=== PATIENT | male | born 1955 | race Caucasian/White ===

== ENCOUNTER 2024-01-02 15:28 | Inpatient (IN) | payer OTHER, MEDICARE ==
[~2024-01-02] VITALS: Ht 170.2 cm; Wt 80.3 kg
[~2024-01-02 15:28] MED LIST: LACO50TA2 PO; LIPITOR80 MG PO; METF500 PO; TAMS.4ER PO; TRAZ50 PO
[2024-01-02] MEDS ORDERED: Ondansetron HCl 2 MG / ML 2ML Vial IV PRN ×2 (15:55→23:05)
[2024-01-02 16:17] LABS: BASOPHILS ABSOLUTE AUTO 0.04 K/mm3 (0.00-0.23); BASOPHILS PERCENT AUTO 0 % (0-2); EOSINOPHILS PERCENT AUTO 0 % (0-6); Hematocrit 49.2 % (37.0-53.0); Hemoglobin 16.7 g/dL (13.5-17.5); IMMATURE GRAN ABSOLUTE AUTO 0.18 K/mm3 (0.00-0.10); IMMATURE GRAN PERCENT AUTO 1 % (0-1); LYMPHOCYTES ABSOLUTE AUTO 1.53 K/mm3 (0.84-5.20); LYMPHOCYTES PERCENT AUTO 6 % (21-46); MONOCYTES ABSOLUTE AUTO 0.69 K/mm3 (0.16-1.47); MONOCYTES PERCENT AUTO 3 % (4-13); Mean Corpuscular HGB 31.7 pg (26.0-34.0); Mean Corpuscular HGB Conc 33.9 g/dL (31.5-36.5); Mean Corpuscular Volume 93 fL (80-100); NEUTROPHILS ABSOLUTE AUTO 22.79 K/mm3 (1.96-9.15); NEUTROPHILS PERCENT AUTO 90 % (41-73); Platelet Count 290 K/mm3 (150-400); RDW Coefficient Variation 12.5 % (11.7-14.2); RDW Standard Deviation 43.1 fL (35.1-46.3); Red Blood Cell Count 5.27 M/mm3 (4.30-5.90); White Blood Cell Count 25.23 K/mm3 (4.00-11.30)
[2024-01-02 16:36] LABS: Albumin, Blood 4.1 g/dL (3.4-5.0); Albumin/Globulin Ratio 0.9 (0.8-1.8); Bilirubin, Total 0.6 mg/dL (0.1-1.0); Bun/Creatinine Ratio 28.8 (12.0-20.0); Calcium, Blood 9.9 mg/dL (8.5-10.1); Creatinine, Blood 0.76 mg/dL (0.60-1.20); Globulin, Blood 4.7 g/dL (2.2-4.0); Potassium, Blood 4.1 mmol/L (3.5-5.5); Total Protein, Blood 8.8 g/dL (6.4-8.2)
[2024-01-02] MEDS ORDERED: NS 1,000 ML IV SCH ×2 (19:30→22:10)
[2024-01-02] MEDS ORDERED: Morphine Sulfate 4 MG/1 ML Injection IV ONE ×2 (19:30→21:40)
[2024-01-02] MEDS ORDERED: MethylPREDNISolone Sod Succ 125 MG Vial IV ONE (22:10)
[2024-01-02] MEDS ORDERED: Piperacillin/Tazobactam Sod 4.5 GM in NS 100 ML IV ONE (22:20)
[2024-01-02] MEDS ORDERED: FentaNYL Citrate 50 MCG/ML 2 ML Injection IV PRN (23:00)
[2024-01-02] MEDS ORDERED: Acetaminophen 650 MG Supp PR PRN (23:00)
[2024-01-02] MEDS ORDERED: Naloxone HCl 0.4MG / ML 1ML Vial IV PRN (23:05)
[2024-01-02] MEDS ORDERED: OxyCODONE HCL 5 MG TAB PO PRN (23:05)
[2024-01-02] MEDS ORDERED: Acetaminophen 325 MG TABLET PO PRN (23:05)
[2024-01-02] MEDS ORDERED: FLU VACC TS2024-25(6MOS UP)/PF 45 MCG/0.5 ML SYRINGE IM ONE (23:05)
[2024-01-02] MEDS ORDERED: Lactated Ringer's 1,000 ML IV SCH (23:33)
[2024-01-03 00:13] LABS: C-Reactive Protein, High Sens. 0.663 mg/dL (0.000-3.000)
[2024-01-03] MEDS ORDERED: TraZODone HCl 50 MG Tab PO PRN (00:40)
[2024-01-03 05:36] LABS: BASOPHILS ABSOLUTE AUTO 0.04 K/mm3 (0.00-0.23); BASOPHILS PERCENT AUTO 0 % (0-2); EOSINOPHILS PERCENT AUTO 0 % (0-6); Hematocrit 44.1 % (37.0-53.0); Hemoglobin 15.1 g/dL (13.5-17.5); IMMATURE GRAN ABSOLUTE AUTO 0.14 K/mm3 (0.00-0.10); IMMATURE GRAN PERCENT AUTO 1 % (0-1); LYMPHOCYTES ABSOLUTE AUTO 1.21 K/mm3 (0.84-5.20); LYMPHOCYTES PERCENT AUTO 5 % (21-46); MONOCYTES ABSOLUTE AUTO 0.28 K/mm3 (0.16-1.47); MONOCYTES PERCENT AUTO 1 % (4-13); Mean Corpuscular HGB 31.9 pg (26.0-34.0); Mean Corpuscular HGB Conc 34.2 g/dL (31.5-36.5); Mean Corpuscular Volume 93 fL (80-100); Mean Platelet Volume 9.2 fL (9.1-12.4); NEUTROPHILS ABSOLUTE AUTO 23.05 K/mm3 (1.96-9.15); NEUTROPHILS PERCENT AUTO 93 % (41-73); Platelet Count 258 K/mm3 (150-400); RDW Coefficient Variation 12.7 % (11.7-14.2); RDW Standard Deviation 43.8 fL (35.1-46.3); Red Blood Cell Count 4.73 M/mm3 (4.30-5.90); White Blood Cell Count 24.72 K/mm3 (4.00-11.30)
[2024-01-03 05:49] LABS: Magnesium, Blood 1.7 mg/dL (1.6-2.4)
[2024-01-03 06:03] LABS: Albumin, Blood 3.3 g/dL (3.4-5.0); Albumin/Globulin Ratio 0.8 (0.8-1.8); Bilirubin, Total 0.4 mg/dL (0.1-1.0); Bun/Creatinine Ratio 21.5 (12.0-20.0); Calcium, Blood 8.2 mg/dL (8.5-10.1); Creatinine, Blood 0.89 mg/dL (0.60-1.20); Globulin, Blood 4.1 g/dL (2.2-4.0); Potassium, Blood 4.1 mmol/L (3.5-5.5); Total Protein, Blood 7.4 g/dL (6.4-8.2)
[2024-01-03] MEDS ORDERED: Lactobacil 2-S.Thermo-Bifido 1 1 Cap PO SCH (09:00)
[2024-01-03] MEDS ORDERED: Lacosamide 50 MG Tablet PO SCH ×2 (09:00)
[2024-01-03] MEDS ORDERED: MethylPREDNISolone Sod Succ 125 MG Vial IV SCH (09:00)
[2024-01-03] MEDS ORDERED: Tamsulosin HCl 0.4 MG Cap PO SCH (09:00)
[2024-01-03] MEDS ORDERED: Enoxaparin 40 MG/0.4 ML SYR SC SCH (09:00)
[2024-01-03 11:06] VITALS: BP 144/90
--- NOTE | 2024-01-03 14:53 | NUR ---
CALL FROM TOBY ALKALINE WATER, REPORTING PATIENT'S HR TACHYING UP TO 130s/140s AND SUSTAINING. NOTIFIED PRIMARY RN.
[2024-01-03 15:38] VITALS: BP 91/63
[2024-01-03 15:40] VITALS: BP 111/76
[2024-01-03] MEDS ORDERED: ELEPSIA XR1500 MG PO (15:59)
[2024-01-03] MEDS ORDERED: FAMO20 PO (16:01)
[2024-01-03 17:21] VITALS: BP 98/61
[2024-01-03] MEDS ORDERED: Lactated Ringer's 1,000 ML IV SCH (17:25)
[2024-01-03 17:41] VITALS: BP 98/61
--- NOTE | 2024-01-03 19:12 | NUR ---
SHIFT SUMMARY/ADMIT: PT A/O X4. PLEASANT AND COOPERATIVE WITH CARE. ER ADMIT THIS AM. PT C/O 5-6 ABD PAIN UPON INITIAL ASSESSMENT. PRN PAIN MEDICATION PROVIDED. PT STATED FOR FUTURE PAIN REGEMIN HE WOULD LIKE "MORPHINE LIKE I GOT IN THE ER." TELE IN PLACE RUNNING SINUS TACHY IN 120'S-130'S. HOSPITALIST AWARE OF HEARTRATE. LR INFUSING @ 125/HR. PT ACCIDENTALLY PULLED RAC IV. EDEMA NOTED IN RFA POST IV PULL. NEW IV PLACED IN RWR. PT HAD FALL AT APPROX 1710 THIS SHIFT. PT STATED NEPHEW WAS ATTEMPTING TO WALK PT TO BATHROOM. BED ALARM IN PLACE PRIOR TO ATTEMPT BUT STAFF UNABLE TO BE IN ROOM UNTIL POST FALL. PT C/O R. SIDE NECK PAIN POST FALL BUT CLAIMS HE DID NOT HIT HEAD. TYLENOL PROVIDED POST FALL. DR. SMITH AWARE. DURING INITAL ASSESSMENT, PT STATED HE WANTED TO BE DNR STATUS INSTEAD OF FULL CODE. DR. SMITH NOTIFIED SHORTLY AFTER STATING SHE WOULD PLACE ORDER. PT SISTER ABLE TO SEND IN LIST OF MEDICATIONS. CALL LIGHT IN REACH. BED IN LOWEST POSITION WITH ALARM ON.
[2024-01-03 20:00] VITALS: BP 96/55
[2024-01-03] MEDS ORDERED: Atorvastatin 40 MG Tab PO SCH (21:00)
[2024-01-04] VITALS (36 sets, daily range): BP systolic 80–150; BP diastolic 47–110
[2024-01-04 05:49] LABS: BASOPHILS ABSOLUTE AUTO 0.05 K/mm3 (0.00-0.23); BASOPHILS PERCENT AUTO 0 % (0-2); EOSINOPHILS PERCENT AUTO 0 % (0-6); Hematocrit 24.5 % (37.0-53.0); Hemoglobin 7.9 g/dL (13.5-17.5); IMMATURE GRAN PERCENT AUTO 1 % (0-1); LYMPHOCYTES ABSOLUTE AUTO 4.82 K/mm3 (0.84-5.20); LYMPHOCYTES PERCENT AUTO 13 % (21-46); MONOCYTES ABSOLUTE AUTO 3.22 K/mm3 (0.16-1.47); MONOCYTES PERCENT AUTO 9 % (4-13); Mean Corpuscular HGB 32.2 pg (26.0-34.0); Mean Corpuscular HGB Conc 32.2 g/dL (31.5-36.5); Mean Platelet Volume 10.2 fL (9.1-12.4); NEUTROPHILS ABSOLUTE AUTO 28.97 K/mm3 (1.96-9.15); NEUTROPHILS PERCENT AUTO 77 % (41-73); Platelet Count 235 K/mm3 (150-400); RDW Coefficient Variation 13.2 % (11.7-14.2); RDW Standard Deviation 47.9 fL (35.1-46.3); Red Blood Cell Count 2.45 M/mm3 (4.30-5.90); White Blood Cell Count 37.46 K/mm3 (4.00-11.30)
[2024-01-04 05:54] LABS: Mean Corpuscular Volume 100 fL (80-100)
[2024-01-04 06:30] LABS: Albumin, Blood 2.4 g/dL (3.4-5.0); Albumin/Globulin Ratio 0.8 (0.8-1.8); Bilirubin, Total 0.2 mg/dL (0.1-1.0); Calcium, Blood 8.2 mg/dL (8.5-10.1); Creatinine, Blood 1.16 mg/dL (0.60-1.20); Globulin, Blood 2.9 g/dL (2.2-4.0); Potassium, Blood 4.3 mmol/L (3.5-5.5); Total Protein, Blood 5.3 g/dL (6.4-8.2)
[2024-01-04] MEDS ORDERED: Morphine Sulfate 4 MG/1 ML Injection IV PRN (07:40)
[2024-01-04] MEDS ORDERED: Promethazine HCl 25 MG Tab PO PRN (07:45)
[2024-01-04 07:58] LABS: Hematocrit 23.2 % (37.0-53.0); Hemoglobin 7.6 g/dL (13.5-17.5); Mean Corpuscular HGB 32.5 pg (26.0-34.0); Mean Corpuscular HGB Conc 32.8 g/dL (31.5-36.5); Mean Corpuscular Volume 99 fL (80-100); Platelet Count 230 K/mm3 (150-400); RDW Coefficient Variation 13.4 % (11.7-14.2); RDW Standard Deviation 47.6 fL (35.1-46.3); Red Blood Cell Count 2.34 M/mm3 (4.30-5.90); White Blood Cell Count 38.15 K/mm3 (4.00-11.30)
[2024-01-04] MEDS ORDERED: MetroNIDAZOLE 500MG/NS 100 ml 100 ML IV SCH (08:00)
[2024-01-04] MEDS ORDERED: Pantoprazole Sodium 40 MG Injection IV SCH (08:00)
[2024-01-04 08:18] LABS: BASOPHILS PERCENT MAN 0 % (0-2); EOSINOPHILS PERCENT MAN 0 % (0-6); LYMPHOCYTES ABSOLUTE MAN 6.86 K/mm3 (0.84-5.20); LYMPHOCYTES PERCENT MAN 18 % (21-46); MONOCYTES PERCENT MAN 5 % (4-13); NEUTROPHILS ABSOLUTE MAN 29.37 K/mm3 (1.96-9.15); SEG NEUTROPHILS PERCENT MAN 77 % (41-73); TOTAL CELLS COUNTED 100
[2024-01-04] MEDS ORDERED: CIPROFLOXACIN IV SCH (09:00)
[2024-01-04] MEDS ORDERED: [UNRECOGNIZED DRUG - OTHER] IV SCH (09:00)
[2024-01-04] MEDS ORDERED: Pantoprazole Sodium 40 MG in NS 50 ML IV SCH (09:30)
[2024-01-04] MEDS ORDERED: LORazepam 2 MG/ML 1ML Injection IV PRN (09:30)
[2024-01-04] MEDS ORDERED: levETIRAcetam 1,000 MG in NS 100 ML IV SCH (09:35)
[2024-01-04] MEDS ORDERED: NS 500 ML IV SCH (12:00)
--- NOTE | 2024-01-04 12:33 | NUR ---
Pt A-Ox2 disoriented to time and place, lethergic, VSS with sinus tachycardia of 120-130s, bedbound, shows no signs of pain or SOB, on 3L NC, Had crital Lab of Lactic of 2.3 At 0905 pt was unresponsive, confused with fix gazed, purse lip breathing, drool and spit all over mouth, Rapid called do to change in mentaly/possible MD yulia notifed, VSS stabel. pt transfered to ICU, report given, safety ensured.
[2024-01-04] MEDS ORDERED: EpiNEPhrine 1 MG/1 ML 1ML Vial ONE (13:58)
[2024-01-04] MEDS ORDERED: Ethanolamine Oleate 50MG/ML 2ML Amp ONE (13:58)
[2024-01-04] MEDS ORDERED: Lactated Ringer's 1,000 ML IV SCH (14:00)
--- NOTE | 2024-01-04 14:35 | NUR ---
ASSUMED CARE OF PT AT 1120 REPORT RECEIVED FROM GOOD PATEL. PT IS CURRENTLY ON THE MEDICAL FLOOR ON TELE AND WAS A RAPID RESPONSE THIS AM DUE TO CHANGE IN LEVEL OF CONSCIOUSNESS AND SEIZURE ACTIVITY. PT HAS HAD ATIVAN IV AND IS CURRENLTY DROWSY. ARRIVED VIA HOSPITAL BED ON 3L NC, ACCOMPANIED BY RN AND PCT. MOVED OVER TO ICU BED, SKIN CHECK COMPLETED WITH GOOD JACOBS. PT ANSWERS QUESTIONS APPROPRIATELY BUT FALLS IMMEDIATELY BACK TO SLEEP. ST 120'S-130'S. O2 SAT 100% ON 3L NC, PT DOES NOT WEAR O2 AT HOME. LUNGS CTA, NO COUGH OR SHORTNESS OF BREATH. DENIES ANY GI ISSUES AT THIS TIME BUT HAS BEEN C/O INTERMITTENT NAUSEA PER REPORT. NO VOMITING REPORTED. CONTINENT OF URINE AT BASELINE BUT HAS BEEN INCONTINENT OF URINE THIS AM AND IS CURRENTLY IN A BRIEF. NO BREAKDOWN RELATED TO PRESSURE OBSERVED, BRUISE TO SPINE AND LEFT UPPER ARM NOTED. BOTH DOCUMENTED. PG TO RIGHT UPPER ARM, LR INFUSING WITH FLAGYL IVPB UPON ARRIVAL. PICC PLACED BY GOOD JACOBS TO LEFT UPPER ARM, PT TOLERATED WELL ALTHOUGH NEEDED CONSTANT REDIRECTION TO STAY ON HIS BACK. PICC LINE IS AT 51, 2 CM VISIBLE OUTSIDE OF SKIN. TOTAL OF 2 UNITS OF PRBC'S ORDERED AND INFUSED. NEICE TO BEDSIDE, PT'S SISTERS ARE DECISION MAKERS. PT LIVES WITH SISTER DOROTHY. DR. DIAZ CONSULT PLACED AND SURGEON TO BEDSIDE. PLAN IS TO COMPLETE EGD TODAY TO DETERMINE IF A SOURCE OF BLEED CAN BE LOCATED. PHONE NUMBER FOR SISTER GIVEN TO SURGERY TEAM FOR CONSENT FOR PROCEDURE. POC ONGOING.
[2024-01-04] MEDS ORDERED: propofoL 40 ML IV ONE (14:47)
--- NOTE | 2024-01-04 15:31 | NUR ---
01/04/24 1531 Geri Roger 1525 MONITOR INTACT WITH CONTINUOUS PULSE OXIMETRY, CONTINUOUS END TITAL CO2, AND INTERMITTENT BLOOD PRESSURE.History, Chart, Medications and Allergies reviewed before start of procedure.Patient confirms NPO status and agrees with scheduled surgery.Bite Block Placed.ECG IN ICU 15. CHERELLE VELA CRNA PROVIDING ANESTHESIA. SEE ANESTHESIA RECORD.
--- NOTE | 2024-01-04 17:18 | NUR ---
SHIFT SUMMARY PT HAS REMAINED SOMNOLENT AFTER EGD. ORIENTED X PERSON AND PLACE, DOES NOT REMEMBER EVENTS OF TODAY SINCE SEIZURE. V/S STABLE, PT WANTING TO GO OUTSIDE TO SMOKE. NO CIGARETTES OR SHEET METAL LAYOUT WORKER AT BEDSIDE, PT REDIRECTED AND EDUCATED ABOUT BEING ON OXYGEN AND INABILITY TO GET OUT OF BED AT THIS TIME. HE VERBALIZES UNDERSTANDING. NIECE AT BEDSIDE. BED ALARM ON PT HAS A HISTORY OF BEING IMPULSIVE. REMAINS ON 3L NC DURING RECOVERY AFTER SEDATION TO MAINTAIN O2 SAT > 94%. NPO UNTIL TOMORROW PER SURGEON. INCONTINENT OF URINE X2, CLEANED AND NEW BRIEF PLACED. SKIN UNCHANGED FROM EARLER ASSESSMENT. NS TKO INFUSING WITH FLAGYL IVPB. 2 UNITS OF PRBC'S COMPLETED. POC ONGOING.
[2024-01-04 18:24] LABS: Hematocrit 27.7 % (37.0-53.0); Hemoglobin 9.5 g/dL (13.5-17.5)
[2024-01-04] MEDS ORDERED: Nicotine 14 MG PATCH TOP SCH (18:30)
--- NOTE | 2024-01-04 21:27 | NUR ---
ASSUMPTION OF CARE PT LYING IN BED WITH SEIAURE PADS ON AND BED ALARM ON. PT IS SLEEPY BUT AWAKES TO VOICE AND IS ORIENTED TO ALL. AFEBRILE 98.1 F. HR SINUS TACHY IN LOW 100S AND BP STABLE. SAT 95% ON RA. NO CHEST PAIN OR SOB. PT DENIES N/V/ABDOMINAL PAIN. PROTONIX INFUSING INTO LEFT PICC LINE AT 10ML/HR. PT REPORTEDLY INTERMITTENTLY INCONTINENT OF URINE, POSSIBLY DUE TO PROCEDURAL SEDATION EARLIER TODAY. PT HAS CALL LIGHT StudyRoomIN REACH.
[2024-01-05] VITALS (20 sets, daily range): BP systolic 93–149; BP diastolic 54–87
[2024-01-05 00:31] LABS: Hematocrit 24.1 % (37.0-53.0); Hemoglobin 8.3 g/dL (13.5-17.5)
[2024-01-05 05:16] LABS: BASOPHILS ABSOLUTE AUTO 0.02 K/mm3 (0.00-0.23); BASOPHILS PERCENT AUTO 0 % (0-2); EOSINOPHILS PERCENT AUTO 0 % (0-6); Hematocrit 22.5 % (37.0-53.0); Hemoglobin 7.6 g/dL (13.5-17.5); IMMATURE GRAN ABSOLUTE AUTO 0.16 K/mm3 (0.00-0.10); IMMATURE GRAN PERCENT AUTO 1 % (0-1); LYMPHOCYTES ABSOLUTE AUTO 5.63 K/mm3 (0.84-5.20); LYMPHOCYTES PERCENT AUTO 25 % (21-46); MONOCYTES ABSOLUTE AUTO 2.19 K/mm3 (0.16-1.47); MONOCYTES PERCENT AUTO 10 % (4-13); Mean Corpuscular HGB 31.5 pg (26.0-34.0); Mean Corpuscular HGB Conc 33.8 g/dL (31.5-36.5); Mean Corpuscular Volume 93 fL (80-100); Mean Platelet Volume 9.2 fL (9.1-12.4); NEUTROPHILS ABSOLUTE AUTO 14.28 K/mm3 (1.96-9.15); NEUTROPHILS PERCENT AUTO 64 % (41-73); Platelet Count 132 K/mm3 (150-400); RDW Coefficient Variation 14.6 % (11.7-14.2); RDW Standard Deviation 50.3 fL (35.1-46.3); Red Blood Cell Count 2.41 M/mm3 (4.30-5.90); White Blood Cell Count 22.28 K/mm3 (4.00-11.30)
--- NOTE | 2024-01-05 06:12 | NUR ---
SHIFT SUMMARY PT LYING IN BED WITH SEIZURE PADS ON AND BED ALARM ON. PT IS SLEEPY BUT AWAKES TO VOICE AND IS ORIENTED TO ALL. AFEBRILE 98. F. HR SINUS TO SINUS TACHY IN 90S TO LOW 100S AND BP STABLE TO SOFT WHILE SLEEPING 93/58 (68). SAT 92% ON RA. NO CHEST PAIN OR SOB. PT DENIES N/V/ABDOMINAL PAIN. PROTONIX INFUSING INTO LEFT PICC LINE AT 10ML/HR. PT HAS USED CALL LIGHT APPROPIATELY IN ORDER TO MAINTAIN URINARY CONTINENCE. PT HAS CALL LIGHT WTIHIN REACH.
[2024-01-05 06:51] LABS: Albumin, Blood 2.2 g/dL (3.4-5.0); Albumin/Globulin Ratio 0.9 (0.8-1.8); Bilirubin, Total 0.6 mg/dL (0.1-1.0); Bun/Creatinine Ratio 40.9 (12.0-20.0); Calcium, Blood 7.8 mg/dL (8.5-10.1); Creatinine, Blood 1.1 mg/dL (0.60-1.20); Globulin, Blood 2.4 g/dL (2.2-4.0); Potassium, Blood 3.8 mmol/L (3.5-5.5); Total Protein, Blood 4.6 g/dL (6.4-8.2)
[2024-01-05 09:15] LABS: Hemoglobin 7.9 g/dL (13.5-17.5)
[2024-01-05] MEDS ORDERED: Lidocaine 2% Viscous Soln 20 ML,Nystatin 100,000 Unit/ml Susp 20 ML,Mag Hydrox/Al Hydro... MT PRN (14:20)
[2024-01-05] MEDS ORDERED: Sucralfate 1000MG / 10ML UD BTL PO SCH (16:30)
--- NOTE | 2024-01-05 18:03 | NUR ---
DAY SHIFT SUMMARY PT HAS REMAINED ALERT AND ORIENTED THIS SHIFT COMMUNICATING APPROPRIATELY W STAFF. PT VERY DROWSY THIS AM BUT BECAME MORE AWAKE T/O THE DAY. PT HAD NO SEIZURE LIKE ACTIVITY TODAY. PT STARTED ON CLEAR LIQUIDS TODAY AFTER IT WAS CLEARED W DR. DIAZ. PT W C/O OF PAIN IN HIS THROAT W SWALLOWING FLUIDS SO PROVIDER CONTACTED AND PT ORDERED MAGIC MOUTHWASH. PT'S MONITOR SHOWING SR 90'S-100'S THIS SHIFT. BP WNL AND STABLE. PT AFEBRIEL THIS SHIFT. SPO2 >92% ON RM AIR. PT WORKING W PT TODAY. PT TURNING SELF T/O THE SHIFT IN BED. WILL REPORT TO ONCOMING RN.
[2024-01-05 20:48] LABS: Hematocrit 21.3 % (37.0-53.0); Hemoglobin 7.3 g/dL (13.5-17.5)
--- NOTE | 2024-01-05 20:57 | NUR ---
Assumed care of pt at 1900 Pt resting in room on bed, watching TV w/ call light w/ in reach. PT alert and oriented. Speech is slow and pt is hard of hearing. Pt tolerating clear liquid diet. Takes PO medications w/ out incident. Pt has TKO line infusing, and protonix as ordered. Pt on room air, maintaining O2 sats >94%. Lungs clear, dim in bases. PT on continuous interactive media director, hr 100-110s. BP stable w/ systolic in 130s. PT using call light for assistance w/ urinal- using in bed. Pt denies further needs at this time. Plan of care ongoing.
[2024-01-05] MEDS ORDERED: Insulin Human Lispro 100 Units/ML 3ML Syringe SC SCH (21:00)
--- NOTE | 2024-01-05 22:29 | NUR ---
TRANSFER SUMMARY REPORT CALLED TO KALYANI FUNK. PT TRANSFERRED TO PCU ROOM 4. PT ALERT/ORIENTED. PT HAS PROTONIX DRIP RUNNING PER EMAR W/ TKO LINES X2. PT BELONINGS TRANSFERRED W/ PT.
[2024-01-06] VITALS (10 sets, daily range): BP systolic 116–144; BP diastolic 59–80
[2024-01-06 04:14] LABS: BASOPHILS ABSOLUTE AUTO 0.01 K/mm3 (0.00-0.23); BASOPHILS PERCENT AUTO 0 % (0-2); EOSINOPHILS ABSOLUTE AUTO 0.02 K/mm3 (0.00-0.68); EOSINOPHILS PERCENT AUTO 0 % (0-6); Hematocrit 20.3 % (37.0-53.0); Hemoglobin 6.9 g/dL (13.5-17.5); IMMATURE GRAN ABSOLUTE AUTO 0.11 K/mm3 (0.00-0.10); IMMATURE GRAN PERCENT AUTO 1 % (0-1); LYMPHOCYTES ABSOLUTE AUTO 4.78 K/mm3 (0.84-5.20); LYMPHOCYTES PERCENT AUTO 32 % (21-46); MONOCYTES ABSOLUTE AUTO 1.51 K/mm3 (0.16-1.47); MONOCYTES PERCENT AUTO 10 % (4-13); Mean Corpuscular HGB 32.4 pg (26.0-34.0); Mean Corpuscular Volume 95 fL (80-100); Mean Platelet Volume 9.3 fL (9.1-12.4); NEUTROPHILS ABSOLUTE AUTO 8.64 K/mm3 (1.96-9.15); NEUTROPHILS PERCENT AUTO 57 % (41-73); NRBC ABSOLUTE 0.06 K/mm3 (0.00-0.02); NRBC Auto 0.4 /100 WBC (0.0-0.2); Platelet Count 126 K/mm3 (150-400); RDW Coefficient Variation 14.2 % (11.7-14.2); RDW Standard Deviation 48.6 fL (35.1-46.3); Red Blood Cell Count 2.13 M/mm3 (4.30-5.90); White Blood Cell Count 15.07 K/mm3 (4.00-11.30)
[2024-01-06 04:39] LABS: Albumin, Blood 2.1 g/dL (3.4-5.0); Albumin/Globulin Ratio 0.8 (0.8-1.8); Bilirubin, Total 0.5 mg/dL (0.1-1.0); Bun/Creatinine Ratio 21.6 (12.0-20.0); Calcium, Blood 7.1 mg/dL (8.5-10.1); Creatinine, Blood 0.88 mg/dL (0.60-1.20); Globulin, Blood 2.5 g/dL (2.2-4.0); Potassium, Blood 3.3 mmol/L (3.5-5.5); Total Protein, Blood 4.6 g/dL (6.4-8.2)
--- NOTE | 2024-01-06 06:11 | NUR ---
SHIFT SUMMARY ASSUMED CARE OF PT AFTER ICU TRANSFER AT APPROX 2230. PT A&O4, SLOW TO ANSWER BUT CAN EXPRESS SELF CLEARLY. VSS. PT PRESENTED WITH A PROTONIX GTTS AT 10ML/HR RUNNING ON POWERGLIDE AND NS FOR KVO RUNNING ON TRIPLE LUMEN PICC. NO SKIN BREAKDOWN PRESENT AND PT ABLE TO REPOSITION SELF IN BED. PT HGB THIS AM IS 6.9, NOTIFICATION TO MD PLACED AND ORDERS FOR 1U PRBC PLACED. PT TOLERATING TRANSFUSION. BED IN LOWEST POSITION AND CALL LIGHT WITHIN REACH.
[2024-01-06 11:25] LABS: BASOPHILS ABSOLUTE AUTO 0.01 K/mm3 (0.00-0.23); BASOPHILS PERCENT AUTO 0 % (0-2); EOSINOPHILS ABSOLUTE AUTO 0.01 K/mm3 (0.00-0.68); EOSINOPHILS PERCENT AUTO 0 % (0-6); Hematocrit 25.6 % (37.0-53.0); Hemoglobin 8.6 g/dL (13.5-17.5); IMMATURE GRAN ABSOLUTE AUTO 0.11 K/mm3 (0.00-0.10); IMMATURE GRAN PERCENT AUTO 1 % (0-1); LYMPHOCYTES ABSOLUTE AUTO 3.57 K/mm3 (0.84-5.20); LYMPHOCYTES PERCENT AUTO 25 % (21-46); MONOCYTES ABSOLUTE AUTO 1.39 K/mm3 (0.16-1.47); MONOCYTES PERCENT AUTO 10 % (4-13); Mean Corpuscular HGB 31.9 pg (26.0-34.0); Mean Corpuscular HGB Conc 33.6 g/dL (31.5-36.5); Mean Corpuscular Volume 95 fL (80-100); Mean Platelet Volume 9.9 fL (9.1-12.4); NEUTROPHILS ABSOLUTE AUTO 9.02 K/mm3 (1.96-9.15); NEUTROPHILS PERCENT AUTO 64 % (41-73); NRBC ABSOLUTE 0.08 K/mm3 (0.00-0.02); NRBC Auto 0.6 /100 WBC (0.0-0.2); Platelet Count 135 K/mm3 (150-400); RDW Coefficient Variation 14.7 % (11.7-14.2); RDW Standard Deviation 50.7 fL (35.1-46.3); White Blood Cell Count 14.11 K/mm3 (4.00-11.30)
--- NOTE | 2024-01-06 12:54 | NUR ---
PT WORKED WITH PYSICAL THERAPY AND DID A GREAT JOB, VOICED TO DR. HORN THAT HE WAS WANTING TO GO HOME BUT CAME AROUND TO STAY ANOTHER DAY HE WAS AWARE THAT HE NEEDED ANOTHER UNIT OF BLOOD. PT RESTING IN BED, WITH LOWEST POSITION AND CALL LIGHT WITHIN REACH.
--- NOTE | 2024-01-06 17:18 | NUR ---
END OF SHIFT SUMMARY: PT A&OX4 AND COOPERATIVE WITH HIS CARE. IS SATTING >92% ON ROOM AIR, ON TELE SHOWING SINUS RYTHM WITH RATE BETWEEN 90-100. HAS HISTORY OF CVA AND SEIZURES. DOES HAVE WEAKNESS OVERALL AND SLOW SPEECH, IMBALANCES, HARD OF HEARING. HEMOGLOBGIN THIS MORNING WAS 6.9 AND 1 UNIT OF PACKED RED BLOOD CELLS WERE GIVEN & A FOLLOW UP HEMOGLOBIN LEVEL WAS DONE AN HOUR AFTER AND IT WAS AT 8.6. PT HAS NOT HAD A BOWEL MOVEMENT TODAY, IS A 1 PERSON ASSIST WITH FRONT WHEELED WALKER, IS ACHS AND NEEDED COVERAGE FOR BLOOD SUGAR TODAY. POTASSIUM WAS GIVEN IV FOR A READING OF 3.3. WORKED WITH PT TODAY. WILL REPORT TO ONCOMING EMT BASIC RN.
[2024-01-06] MEDS ORDERED: Potassium Chl 20MEQ/Water100ML 100 ML IV STA (18:02)
[2024-01-06 20:18] LABS: Hematocrit 23.3 % (37.0-53.0)
[2024-01-07 03:55] VITALS: BP 127/65
[2024-01-07 04:20] LABS: Hematocrit 21.9 % (37.0-53.0); Hemoglobin 7.5 g/dL (13.5-17.5); Mean Corpuscular HGB 31.9 pg (26.0-34.0); Mean Corpuscular HGB Conc 34.2 g/dL (31.5-36.5); Mean Corpuscular Volume 93 fL (80-100); Mean Platelet Volume 9.5 fL (9.1-12.4); NRBC ABSOLUTE 0.06 K/mm3 (0.00-0.02); NRBC Auto 0.5 /100 WBC (0.0-0.2); Platelet Count 133 K/mm3 (150-400); RDW Coefficient Variation 14.6 % (11.7-14.2); RDW Standard Deviation 49.1 fL (35.1-46.3); Red Blood Cell Count 2.35 M/mm3 (4.30-5.90); White Blood Cell Count 12.96 K/mm3 (4.00-11.30)
[2024-01-07 04:42] LABS: Bun/Creatinine Ratio 9.1 (12.0-20.0); Calcium, Blood 6.9 mg/dL (8.5-10.1); Creatinine, Blood 0.88 mg/dL (0.60-1.20); Magnesium, Blood 1.5 mg/dL (1.6-2.4); Potassium, Blood 2.9 mmol/L (3.5-5.5)
--- NOTE | 2024-01-07 05:24 | NUR ---
SHIFT SUMMARY RESUMED CARE OF PT AT 1900. PT A&O, COOPERATIVE IN CARE AND ABLE TO EXPRESS NEEDS. PT REMAINS ON PROTONIX GTTS, NO BM REPORTED, HGB AT 1999 WAS 8.0 AND AT 399 WAS 7.5. VSS AND NO ACUTE EVENTS OVERNIGHT. POWERGLIDE DRESSING CAHNGED AND PICC DRESSING C/D/I. BED IN LOWEST POSITION AND CALL LIGHT WITHIN REACH.
[2024-01-07 08:00] VITALS: BP 131/68
[2024-01-07] MEDS ORDERED: Potassium Chloride 20 MEQ/15 ML UDC PO ONE (09:00)
[2024-01-07] MEDS ORDERED: Mag Sulfate 1 GM/D5% 100ML 100 ML IV STA (09:10)
[2024-01-07] MEDS ORDERED: [UNRECOGNIZED DRUG - OTHER] IV SCH (09:15)
[2024-01-07] MEDS ORDERED: Potassium Chl 20MEQ/Water100ML 100 ML IV SCH (09:20)
[2024-01-07 13:40] LABS: Hematocrit 24.5 % (37.0-53.0); Hemoglobin 8.3 g/dL (13.5-17.5)
--- NOTE | 2024-01-07 15:52 | NUR ---
SHIFT SUMMARY PT RESTING QUIETLY AT START OF SHIFT. WOKE LATE FOR BREAKFAST AND THEN REMAINED AWAKE FOR A WHILE, TAKING PO MEDS AND WATCHING TV. IV ABX AND KEPPRA GIVEN PER EMAR. PT MEDICATED FOR C/O PAIN TO THROAT AND STOMACH X1 TO PRESENT. NO FURTHER C/O. PT SITTING UPRIGHT IN BED VISITING WITH SISTER AT THIS TIME. PT REMAINS ON CL DIET; ABLE TO DRINK ALL OF BREAKFAST AND LUNCH TO PRESENT. PROTONIX GTT CONTINUES. DR HORN IN TO SEE PT THIS AM; NO NEW ORDERS. PT HAS BEEN VERY PLEASANT AND CO-OP WITH CARE. DECLINED TO GET UP TO CHAIR SO FAR THIS SHIFT. NO FURTHER NEEDS AT THIS TIME. CALL LT IN REACH.
[2024-01-07 16:00] VITALS: BP 135/73
[2024-01-07 20:42] VITALS: BP 137/70
[2024-01-08 00:05] VITALS: BP 120/57
[2024-01-08 03:44] LABS: Hematocrit 24.8 % (37.0-53.0); Hemoglobin 8.4 g/dL (13.5-17.5); Mean Corpuscular HGB 31.8 pg (26.0-34.0); Mean Corpuscular HGB Conc 33.9 g/dL (31.5-36.5); Mean Corpuscular Volume 94 fL (80-100); Mean Platelet Volume 9.7 fL (9.1-12.4); Platelet Count 139 K/mm3 (150-400); RDW Standard Deviation 49.4 fL (35.1-46.3); Red Blood Cell Count 2.64 M/mm3 (4.30-5.90)
[2024-01-08 03:57] VITALS: BP 142/60
[2024-01-08 04:02] LABS: Albumin, Blood 2.1 g/dL (3.4-5.0); Anion Gap 11 mmol/L (3-11); Blood Urea Nitrogen 6 mg/dL (8-24); Bun/Creatinine Ratio 6.8 (12.0-20.0); CO2, Blood 23 mmol/L (21-32); Calcium, Blood 7.3 mg/dL (8.5-10.1); Chloride, Blood 110 mmol/L (98-108); Creatinine, Blood 0.88 mg/dL (0.60-1.20); Glomerular Filtration Rate 94 (60-); Glucose, Blood 115 mg/dL (70-99); Phosphorus, Blood 2.1 mg/dL (2.5-4.9); Potassium, Blood 3.2 mmol/L (3.5-5.5); Sodium, Blood 141 mmol/L (136-145)
[2024-01-08 04:05] LABS: BASOPHILS PERCENT MAN 0 % (0-2); EOSINOPHILS PERCENT MAN 0 % (0-6); LYMPHOCYTES ABSOLUTE MAN 5.49 K/mm3 (0.84-5.20); LYMPHOCYTES PERCENT MAN 41 % (21-46); MONOCYTES ABSOLUTE MAN 1.47 K/mm3 (0.16-1.47); MONOCYTES PERCENT MAN 11 % (4-13); MYELOCYTE ABSOLUTE MAN 0.13 K/mm3 (0.00-0.00); MYELOCYTE PERCENT MAN 1 % (0-0); NEUTROPHILS ABSOLUTE MAN 6.29 K/mm3 (1.96-9.15); SEG NEUTROPHILS PERCENT MAN 47 % (41-73); TOTAL CELLS COUNTED 100
--- NOTE | 2024-01-08 06:23 | NUR ---
SHIFT SUMMARY RESUMED CARE OF PT AT 1900. PT A&O4, COOPERATIVE IN CARE AND ABLE TO EXPRESS NEEDS APPROPRIATELY. VSS AND HGB MAINTAINED. PT ABLE TO REPOSITION SELF, DENIES PAIN AND SOB. NO ACUTE EVENTS OVERNIGHT. BED AT LOWEST POSITION AND CALL LIGHT WITHIN REACH.
[2024-01-08 07:24] VITALS: BP 136/67
--- NOTE | 2024-01-08 11:10 | NUR ---
MORNING SUMMARY THE PT HAS BEEN DROWSY BUT ORIENTEDX4. HE IS SLOW TO RESPOND D/T HX OF CVA. HE IS DECONDITIONED AND REQUIRES 1P ASSIST W/ FWW/CANE AND GB. THE PT DID AMBULATE WITH PHYSICAL THERAPY TODAY AND TOLERATED IT WELL. ON TELE HE HAS BEEN SR AND BP STABLE. THE PT REMAINS ON RA AND SP02 >90%. HE DID C/O A HEADACHE THIS MORNING AND WAS MEDICATED PER EMAR. ALSO, THE PT WAS C/O HAVING NIGHTMARES AND NOT SLEEPING WELL LAST NIGHT. HE WAS EDUCATED ABOUT HIS NICOTINE PATCH AND SIDE EFFECT OF NIGHTMARES. HE DID NOT WANT TO TAKE HIS PATCH OFF. THE PT IS ON A CONT PROTONIX GTT INFUSING PER EMAR. HE IS MEDICAL STATUS W/O TELE AND IS AWAITING FOR A BED ASSIGNMENT. SEE NOTES FOR UPDATES.
[2024-01-08 11:40] VITALS: BP 95/64
[2024-01-08] MEDS ORDERED: Potassium Chloride 20 MEQ/15 ML UDC PO ONE (12:25)
--- NOTE | 2024-01-08 12:35 | NUR ---
I TALKED TO DR. MITCHELL ABOUT MORNING LABS THAT SHOWED K-3.2. DR. MITCHELL ORDERED KCL 40MEQ OT. SEE NOTES FOR ANY UPDATES.
[2024-01-08 15:35] VITALS: BP 147/77
[2024-01-08] MEDS ORDERED: Pantoprazole Sodium 20 MG Tab PO SCH (16:30)
--- NOTE | 2024-01-08 16:57 | NUR ---
SHIFT SUMMARY THE PT IS ALERT AND ORIENTEDX4, CALLS APPROPRAITELY, AND MAKES HIS NEEDS KNOWN. HE REMAINS ON ROOM AIR, SP02 >93% AND HE DENIES ANY SOB. HE IS W/O TELE, BUT BP STABLE AND HE DENIES ANY ANGINA OR CHEST PRESSURE. THE PT IS A 1P SBA W/ GB AND FWW OR CANE. THIS AFTERNOON HE HAS A LOW GRADE FEVER AND WAS MEDICATED W/ 650MG OF TYLENOL PER EMAR. TEMP IMPROVING. THE PT WAS SWITCHED TO PO PROTONIX FROM HIS CONT GTT. HIS SISTER CAME TO BEDSIDE AND WAS UPDATED ON CARE. NO ACUTE EVENTS THIS SHIFT. SEE NOTES FOR ANY UPDATES.
[2024-01-08] MEDS ORDERED: TraZODone HCl 50 MG Tab PO PRN (20:20)
[2024-01-08 20:55] VITALS: BP 127/65
[2024-01-08] MEDS ORDERED: Protein Supplement 30 ML UD PO SCH (21:00)
[2024-01-08] MEDS ORDERED: LevETIRAcetam 500 MG Tab PO SCH (21:00)
[2024-01-09 05:48] VITALS: BP 135/50
--- NOTE | 2024-01-09 06:05 | NUR ---
NOC SHIFT SUMMARY PT ORIENTED X4, SLOW RESPONSES BUT STATES BASELINE DUE TO CVA. VSS, ON RA. MEDICAL STATUS, NO TELEMETRY. PLEASANT AND COOPERATIVE. SLEPT WELL OVERNIGHT AND NO ACUTE EVENTS. PLAN FOR POSSIBLE DC TODAY
[2024-01-09 06:41] LABS: Bun/Creatinine Ratio 6.3 (12.0-20.0); Calcium, Blood 7.5 mg/dL (8.5-10.1); Creatinine, Blood 0.8 mg/dL (0.60-1.20); Magnesium, Blood 1.9 mg/dL (1.6-2.4); Potassium, Blood 3.2 mmol/L (3.5-5.5)
[2024-01-09 07:55] VITALS: BP 148/78
[2024-01-09] MEDS ORDERED: Potassium Chloride 20 MEQ/15 ML UDC PO ONE (08:00)
--- NOTE | 2024-01-09 09:41 | NUR ---
ASSUMPTION OF CARE PT RESTING IN BED, EASILY AROUSES, ORIENTED X4 WITH SLOW, SLURRED SPEECH (REPORTED PTS BASELINE FROM PREVIOUS CVA), PT QUICKLY GOES BACK TO SLEEP, DOES NOT WAKE UP FOR BREAKFAST. OFFSET PLATE MAKER REPORTS THIS IS SAME BEHAVIOR YESTERDAY, BUT PT WOKE UP FOR LUNCH AND WAS ACTIVE IN THE AFTERNOON. PT DENIES ANY PAIN, REPORTS HE WANTS PANCAKES, ALEMAN AND EGGS FOR BREAKFAST. DR MITCHELL TO ROOM FOR AM ROUNDS, VERBAL ORDER TO ADVANCE DIET TOLERATED. PT DENIES ANY CURRENT GI/ ISSUES.
--- NOTE | 2024-01-09 12:50 | NUR ---
PT WOKEN UP AT NOON, ENCOURAGED TO WAKE UP, EAT AND PARTICIPATE IN CARE SO THAT HE CAN SLEEP AT NIGHT. PT RELUCTANT BUT EVENTUALLY AGREED TO GET UP TO CHAIR. PT PROVIDED ENSURE AND CRACKERS, TOLERATED WELL EXCEPT FOR SOME THROAT PAIN, XY[place]AIN MOUTH WASH ADMINISTERED. PT DENIES ANY OTHER PAIN.
[2024-01-09 16:14] VITALS: BP 171/84
[2024-01-09 17:06] VITALS: BP 148/80
[2024-01-09 19:30] VITALS: BP 130/78
[2024-01-10 03:01] VITALS: BP 161/61
[2024-01-10 03:06] LABS: Hematocrit 25.1 % (37.0-53.0); Hemoglobin 8.3 g/dL (13.5-17.5); Mean Corpuscular HGB 31.4 pg (26.0-34.0); Mean Corpuscular HGB Conc 33.1 g/dL (31.5-36.5); Mean Corpuscular Volume 95 fL (80-100); Mean Platelet Volume 8.6 fL (9.1-12.4); Platelet Count 191 K/mm3 (150-400); RDW Coefficient Variation 14.6 % (11.7-14.2); RDW Standard Deviation 49.1 fL (35.1-46.3); Red Blood Cell Count 2.64 M/mm3 (4.30-5.90); White Blood Cell Count 11.66 K/mm3 (4.00-11.30)
[2024-01-10 03:24] LABS: Bun/Creatinine Ratio 11.1 (12.0-20.0); Calcium, Blood 7.5 mg/dL (8.5-10.1); Creatinine, Blood 0.9 mg/dL (0.60-1.20); Potassium, Blood 3.6 mmol/L (3.5-5.5)
--- NOTE | 2024-01-10 04:15 | NUR ---
END OF SHIFT SUMMARY: Uneventful night, patient rested comfortably. No complaints of abdominal pain, no diarrhea. VSS on RA, non-tele. L arm triple lumen PICC with no blood return but flushes (DC today?), JUANA powerglide with blood return, WNL. Still on cipro/flagyl for Krohns exacerbation/flare up. A&Ox4, COUNCIL. Painful swallowing after EGD with esophagitis diagnosis- PRN xylocaine provided relief. BG Checks ACHS WNL at HS no treatment needed. Tolerating a carb controlled diet. Getting OOB with Assist x 1 FWW. Last BM 01/08. Fluconazole added by day MD for thrush/esophagitis candiasis. Possibly going home today?
[2024-01-10 07:49] VITALS: BP 139/63
[2024-01-10] MEDS ORDERED: Losartan Potassium 25 MG Tab PO SCH (09:00)
[2024-01-10] MEDS ORDERED: Fluconazole 100 MG Tab PO SCH (09:00)
[2024-01-10 11:42] VITALS: BP 141/69
[2024-01-10 15:53] VITALS: BP 142/71
--- NOTE | 2024-01-10 18:00 | NUR ---
SHIFT SUMMARY PT IS A&OX4, CALLS APPROPRIATELY, AND MAKES HIS NEEDS KNOWN. HE IS A 1P ASSIST W/ FWW AND GB. HE IS ON RA W/ SP02 >90%. HE IS W/O TELE.VITAL SIGNS HAVE BEEN STABLE. THE PT IS ACHS AND IS ON A LOW SLIDING SCALE; INSULIN PER SCALE ACHS. THE PT DID HAVE A BLACK TARRY STOOL. HGB REMAINS STABLE. BLACK TARRY STOOLS WERE NOTED YESTERDAY 01/08. HIS SISTER CAME TO BEDSIDE AND WAS UPDATED ON CARE.NO ACUTE EVENTS. SEE NOTES FOR ANY UPDATES.
[2024-01-10 19:35] VITALS: BP 117/74
[2024-01-11 04:31] VITALS: BP 130/77
--- NOTE | 2024-01-11 05:32 | NUR ---
END OF SHIFT SUMMARY: Patient with uneventful night. VSS on 2LNC for PEREZ, otherise WNL on RA, nontele, OOB with assist x1, plan is to discharge home today with help from sister? On cipro/flagyl for leukocytosis, unknown infectious source per MD. Here for Crohns flare up, no more diarrhea, abd pain. No signs of bleeding. EMILY PICC 2 lumen still present, doesn't draw but flushes. No edema/redness. JUANA powerglide draws, WNL. A&Ox4, slow speech due to previous CVA, OMAHA. Voiding via urinal. On fluconazole for esophagal candiasis
[2024-01-11 10:09] VITALS: BP 138/80
[2024-01-11 12:18] VITALS: BP 131/71
[2024-01-11] MEDS ORDERED: FLUC200 PO (12:18)
[2024-01-11] MEDS ORDERED: Xylocaine5 M1 MT (12:19)
[2024-01-11] MEDS ORDERED: PANT20 PO (12:20)
[2024-01-11] MEDS ORDERED: SUCR1 PO (12:20)
[2024-01-11] MEDS ORDERED: Nicoderm Cq1 EAC1 TOP (12:20)
--- NOTE | 2024-01-11 13:58 | NUR ---
NURSE NOTE PT SISTER CALLED TO INFORM HIS DISCHARGE PAPERWORK IS DONE, SHE WILL BE IN WITHIN THE HOUR TO PICK HIM UP. PT SITTING UP IN CHAIR, CALL LIGHT IN REACH
--- NOTE | 2024-01-11 15:20 | NUR ---
NURSE NOTE PT SISTER ARRIVED TO PICK HIM UP. DISCHARGE PAPERSWORK DISSCUSSED W/ BOTH PT AND SISTER. PERSONAL BELONGINGS GATHERED. PT WHEELED OUT TO CAR BY HOSE MAKER.
== END 2024-01-11 17:09 | disposition home or self-care (01) | DRG 385 ==
LOC: ER 15:28 → ERHOLD 15:29 → MEDS 23:54 → ER 23:54 → MEDS 01-03 11:01 → PCU 01-03 15:52 → ICUE 01-03 15:52 → MEDS 01-03 22:47 → ICUE 01-04 11:22 → PCU 01-05 22:28
PROVIDERS: Emergency Medicine; Family Medicine; Internal Medicine; Surgery; ADMIT Student in an Organized Health Care Education/Training Program
PROC: 30233N1 Transfusion of Nonautologous Red Blood Cells into Peripheral Vein, Percutaneous Approach (ICD-10-PCS; 2024-01-04)
PROC: 0DB78ZX Excision of Stomach, Pylorus, Via Natural or Artificial Opening Endoscopic, Diagnostic (ICD-10-PCS; principal; 2024-01-04 12:15)
DX: K50.90 Crohn's disease, unspecified, without complications (principal); K20.91 Esophagitis, unspecified with bleeding; K29.81 Duodenitis with bleeding; D62 Acute posthemorrhagic anemia; R65.10 Systemic inflammatory response syndrome (SIRS) of non-infectious origin without acute organ dysfunction; K92.1 Melena; Z66 Do not resuscitate; H53.2 Diplopia; E11.9 Type 2 diabetes mellitus without complications; G40.909 Epilepsy, unspecified, not intractable, without status epilepticus; K44.9 Diaphragmatic hernia without obstruction or gangrene; I77.1 Stricture of artery; E87.6 Hypokalemia; Z86.73 Personal history of transient ischemic attack (TIA), and cerebral infarction without residual deficits; Z79.84 Long term (current) use of oral hypoglycemic drugs
CPT/HCPCS: 36415; 36430; 36569; 74174; 74177; 80048; 80053; 80069; 82010; 82330; 82947; 83036; 83605; 83735; 84145; 84484; 85014; 85018; 85025; 85027; 85651; 86141; 86850; 86900; 86901; 86920; 86923; 87040; 88305; 88342; 94760; 96361; 96365; 96372-59; 96375; 96376; 97110; 97116; 97162; 97530; 99285-25; A9270; C1751; G0378; J0171; J0744; J1430; J1650; J1953; J2060; J2270; J2405; J2470; J2543; J2704; J2919; J3010; J3475; J3480; J7030; J7040; J7120; P9016; Q9967